=== PATIENT | female | born 1985 | race Caucasian/White ===

== ENCOUNTER 2019-07-02 15:45 | Inpatient (IN) | payer MEDICAID ==
[~2019-07-02] VITALS: Ht 162.6 cm; Wt 70.5 kg
[2019-07-02] MEDS ORDERED: SODIUM CHLORIDE 0.9% 1,000 ML IV ONE (15:59)
[2019-07-02] MEDS: ONDANSETRON HCL 4 MG/2 ML VIAL IV ONE ×2 (16:22→16:39)
[2019-07-02 16:33] LABS: Basophils # (auto) 0 10 ^3/uL (0-0.2); Basophils % (auto) 0.4 % (0.0-2.0); Eosinophils # (auto) 0.1 10 ^3/uL (0-0.8); Eosinophils % (auto) 0.9 % (0.0-7.0); Hematocrit 43.7 % (36.0-46.0); Hemoglobin 14.6 g/dL (12.2-16.2); Lymphocytes # (auto) 1.9 10 ^3/uL (0.4-5.4); Lymphocytes % (auto) 29.1 % (10.0-50.0); Mean Corpuscular Hemoglobin 29.2 pg (28.0-32.0); Mean Corpuscular Hgb Conc. 33.5 g/dL (32.0-36.0); Mean Corpuscular Volume 87.3 fL (80.0-100.0); Monocytes # (auto) 0.4 10 ^3/uL (0-1.3); Monocytes % (auto) 5.8 % (0.0-12.0); Neutrophils # (auto) 4.1 10 ^3/uL (1.6-8.6); Neutrophils % (auto) 63.8 % (37.0-80.0); Nucleated Red Blood Cells % 0.1 %; Platelet Count (auto) 206 10^3/uL (140-450); Red Blood Cells 5.01 10^6/uL (4.0-5.20); Red Cell Distribution Width 13.9 % (11.8-14.3); White Blood Cell 6.5 10^3/uL (4.4-10.8)
[2019-07-02 16:43] LABS: INR 1.04 (0.9-1.15); Partial Thromboplastin Time 27.1 sec (23.64-32.05)
[2019-07-02 16:51] LABS: Albumin 4.3 g/dL (3.4-5.0); Calcium 9.2 mg/dL (8.5-10.1); Potassium 3.3 mmol/L (3.5-5.1)
[2019-07-02 16:54] LABS: BUN/Creatinine Ratio 6.7; Bilirubin, Total 0.4 mg/dL (0.2-1.0); Total Protein 8.1 g/dL (6.4-8.2)
[2019-07-02] MEDS ORDERED: NITROGLYCERIN 0.4 MG SL TAB SL PRN ×2 (18:45→19:15)
[2019-07-02] MEDS ORDERED: POTASSIUM CHL 20MEQ/100ML 100 ML IV ONE (18:45)
[2019-07-02] MEDS ORDERED: MORPHINE SULF INJ 2 MG/ML SYRINGE 1ML IV PRN ×2 (18:45→19:15)
[2019-07-02] MEDS ORDERED: diphenhdrAMINE HCL 50 MG/1 ML VL IV ONE (19:00)
[2019-07-02] MEDS ORDERED: SODIUM CHLORIDE 0.9% 1,000 ML IV SCH (19:12)
[2019-07-02] MEDS ORDERED: ONDANSETRON HCL 4 MG/2 ML VIAL IV PRN (19:15)
[2019-07-02] MEDS ORDERED: hydrOXYchloroQUINE SULFATE 200 MG TAB PO ONE (19:15)
[2019-07-02] MEDS ORDERED: DEXTROSE (50%) 50ML SYRG IV PRN (19:15)
[2019-07-02] MEDS ORDERED: ALUM & MAG HYDROX-SIMETH LIQ(MAALOX) 30 ML PO PRN (19:15)
[2019-07-02] MEDS ORDERED: DOCUSATE SOD 100 MG CAP PO PRN (19:15)
[2019-07-02] MEDS ORDERED: HYDROcodone-ACET 5/325MG TAB PO PRN (19:15)
[2019-07-02] MEDS ORDERED: TEMAZEPAM 15 MG CAP PO PRN (19:15)
[2019-07-02] MEDS ORDERED: VITAMINS A & D (TOPICAL) OINT 5GM TOP ONE (19:30)
[2019-07-02] MEDS ORDERED: VITAMINS A & D (TOPICAL) OINT 5GM TOP PRN (19:30)
[2019-07-02 20:15] VITALS: BP 133/81
--- NOTE | 2019-07-02 20:18 | NUR ---
Telemetry admit from ER Patient admitted to Telemetry unit. Patient oriented to primary RN, unit, room, bed, and unit policies regarding patient care and visiting hours. Patient now on continuous telemetry monitoring, tele box # 60 and telemetry reading on arrival to unit is sinus rhythm. Patient weighed by bedscale and encouraged to call if they need something. All questions and concerns addressed, patient verbalized understanding. Safety precautions maintained bed is in lowest position and bed rails 2x. Call light and bedside table are within reach.
[2019-07-02 20:20] VITALS: BP 133/81
[2019-07-02] MEDS: InsuLIN REG 1unit/0.01ml Soln (100units/ml) SC SCH (22:00)
[2019-07-02] MEDS: ACCU-CHEK COMFORT CURVE STRIP VI SCH (22:00)
[2019-07-02] MEDS: hydrOXYchloroQUINE SULFATE 200 MG TAB PO SCH (22:00)
--- NOTE | 2019-07-02 22:00 | NUR ---
Patient refused med Patient refused scheduled Plaquenil PO 100mg. Patient states she wants to hold off and see if she has any side effects from the medication. Patient did agree to take one time Plaquenil 200mg dose at 2019 Addendum: 07/03/19 at 0619 by Luann Duff RN Educated patient on medication side effects/ adverse effects and uses. Will continue to monitor patient Q1 and PRN.
[2019-07-03] MEDS ORDERED: POTASSIUM CHL 20MEQ/100ML 100 ML IV ONE (02:30)
[2019-07-03 05:00] VITALS: BP 124/84
[2019-07-03 05:18] LABS: Basophils # (auto) 0 10 ^3/uL (0-0.2); Basophils % (auto) 0.6 % (0.0-2.0); Eosinophils # (auto) 0.1 10 ^3/uL (0-0.8); Eosinophils % (auto) 1.5 % (0.0-7.0); Hematocrit 37.3 % (36.0-46.0); Hemoglobin 12.8 g/dL (12.2-16.2); Lymphocytes % (auto) 29.9 % (10.0-50.0); Mean Corpuscular Hemoglobin 30.3 pg (28.0-32.0); Mean Corpuscular Hgb Conc. 34.4 g/dL (32.0-36.0); Monocytes # (auto) 0.4 10 ^3/uL (0-1.3); Monocytes % (auto) 6.2 % (0.0-12.0); Neutrophils % (auto) 61.8 % (37.0-80.0); Nucleated Red Blood Cells % 0.1 %; Platelet Count (auto) 182 10^3/uL (140-450); Red Blood Cells 4.24 10^6/uL (4.0-5.20); Red Cell Distribution Width 13.8 % (11.8-14.3); White Blood Cell 6.5 10^3/uL (4.4-10.8)
[2019-07-03 05:31] LABS: INR 1.12 (0.9-1.15); Partial Thromboplastin Time 28.6 sec (23.64-32.05)
[2019-07-03 05:32] LABS: Potassium 3.8 mmol/L (3.5-5.1)
[2019-07-03 05:44] LABS: Albumin 3.6 g/dL (3.4-5.0); BUN/Creatinine Ratio 6.6; Bilirubin, Total 0.4 mg/dL (0.2-1.0); Calcium 8.4 mg/dL (8.5-10.1); Phosphorus 3.5 mg/dL (2.5-4.90); Total Protein 6.8 g/dL (6.4-8.2)
[2019-07-03] MEDS: InsuLIN REG 1unit/0.01ml Soln (100units/ml) SC SCH ×3 (07:00→17:00)
[2019-07-03] MEDS: ACCU-CHEK COMFORT CURVE STRIP VI SCH ×3 (07:05→17:00)
[2019-07-03] MEDS ORDERED: ACETAMINOPHEN 325 MG TAB PO PRN (07:45)
[2019-07-03] MEDS: DEXTROSE 10% 1,000 ML IV SCH ×2 (07:45→18:12)
[2019-07-03 08:00] VITALS: BP 98/61
[2019-07-03] MEDS ORDERED: DICY20TA PO (08:09)
[2019-07-03] MEDS ORDERED: OMEP20TA PO (08:09)
[2019-07-03 09:03] VITALS: BP 98/61
[2019-07-03] MEDS ORDERED: ASCORBIC ACID 1,000 MG TAB PO SCH (10:00)
[2019-07-03] MEDS: hydrOXYchloroQUINE SULFATE 200 MG TAB PO SCH (10:00)
[2019-07-03] MEDS ORDERED: CHOLECALCIFEROL (VITD3) 1,000UNIT=25mCg TAB PO SCH (10:00)
[2019-07-03] MEDS ORDERED: FAMOTIDINE (10MG/ML) 2ML VL IV SCH (10:00)
[2019-07-03] MEDS ORDERED: ENOXAPARIN SOD 40 MG/0.4 ML SYRINGE SC SCH ×2 (10:00)
--- NOTE | 2019-07-03 11:57 | NUR ---
Spoke with Dr. Trevor Westfall regarding plan of care for patient, order received, will document and carry out
[2019-07-03] MEDS ORDERED: diazePAM 2 MG TAB PO PRN (12:00)
--- NOTE | 2019-07-03 12:03 | NUR ---
Called and left message for Dr. Anam Church. Dr. Shafer is inquiring Dr. Church will clear patient for discharge at this time.
--- NOTE | 2019-07-03 14:24 | NUR ---
Dr. Chaz Westfall at bedside with patient to discuss plan of care.
--- NOTE | 2019-07-03 15:02 | NUR ---
Patient out of room to abdomen/ pelvis CT
--- NOTE | 2019-07-03 16:37 | NUR ---
Paged Dr. Church to see if patient is cleared for discharge per Dr. Chaz Price.
--- NOTE | 2019-07-03 16:42 | NUR ---
Received call back from Dr. Church, he stated patient is cleared from him if Dr. Price thinks she is ok for discharge.
[2019-07-03 16:45] VITALS: BP 118/76
[2019-07-03] MEDS ORDERED: DOCU-94 PO (17:24)
[2019-07-03] MEDS ORDERED: HYDR200T36 PO (17:24)
[2019-07-03 18:12] VITALS: BP 105/65
--- NOTE | 2019-07-03 18:58 | NUR ---
Discharge instructions given as ordered. Encourage to follow up with Primary care provider Dr. Wilkerson as instructed. All questions and concerns addressed. Patient verbalized understanding. Medication reconciliation form completed and copy given to patient. IV removed with catheter intact, pressure dressing applied. Telemetry unit returned to ICU. Patient taken to vehicle via wheelchair with all personal belongings, accompanied by staff and her mother. No distress noted at time of departure.
[2019-07-06 14:17] LABS: Hepatitis A Ab IgM Negative; Hepatitis B Core IgM Negative; Hepatitis B Surface Antigen Negative (Negative); Hepatitis C Antibody Negative (Negative)
[2019-07-06 14:27] LABS: Hepatitis B Surface Antibody Negative
--- NOTE | 2019-07-06 16:17 | NUR ---
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 order sent to [employer] [facility]. Per Briana at [facility] they have accepted patient for service. Per Emily Jamil [facility] [employer] she is sending [facility] the auth. Addendum: 07/06/19 at 1619 by Joann FREEMAN Amended: Links added.
--- NOTE | 2019-07-06 16:36 | NUR ---
re-assessment Auth for Danelle Savage is [id number] Addendum: 07/06/19 at 1637 by Joann FREEMAN Amended: Links added.
[2019-07-06 17:43] LABS: Hepatitis B Surface Antigen Negative (Negative)
== END 2019-07-03 19:20 | disposition home health service (06) | DRG 423 ==
LOC: ER 15:45 → TELE 15:46 → TELE-WESTW 20:00
PROVIDERS: ADMIT Hospitalist; ATTEND Internal Medicine
DX: E80.1 Porphyria cutanea tarda (principal); E87.6 Hypokalemia; L29.9 Pruritus, unspecified; K21.9 Gastro-esophageal reflux disease without esophagitis; R21 Rash and other nonspecific skin eruption; F17.210 Nicotine dependence, cigarettes, uncomplicated; K58.9 Irritable bowel syndrome, unspecified; F41.9 Anxiety disorder, unspecified; Z80.0 Family history of malignant neoplasm of digestive organs; Z83.3 Family history of diabetes mellitus; Z80.3 Family history of malignant neoplasm of breast; K58.1 Irritable bowel syndrome with constipation
CPT/HCPCS: 36415; 71045; 74176; 80053; 80061; 80074; 81025; 82306; 82728; 82962; 83036; 83540; 83550; 83735; 84100; 84110; 84702; 85025; 85610; 85730; 86706; 87340; G0378; J2405; J3480; J3490

== ENCOUNTER 2023-08-19 17:56 | Emergency (ER) | payer MEDICAID ==
[~2023-08-19] VITALS: Ht 162.6 cm; Wt 80.4 kg
[~2023-08-19 17:56] MED LIST: DICY20TA PO; DOCU-94 PO; HYDR200T36 PO; OMEP20TA PO
[2023-08-19 19:46] LABS: Basophils # (auto) 0 10 ^3/uL (0-0.2); Basophils % (auto) 0.2 % (0.0-2.0); Eosinophils # (auto) 0 10 ^3/uL (0-0.8); Eosinophils % (auto) 0.3 % (0.0-7.0); Hematocrit 37.8 % (36.0-46.0); Hemoglobin 13.2 g/dL (12.2-16.2); Lymphocytes # (auto) 0.8 10 ^3/uL (0.4-5.4); Lymphocytes % (auto) 11.2 % (10.0-50.0); Mean Corpuscular Volume 82.7 fL (80.0-100.0); Monocytes # (auto) 0.2 10 ^3/uL (0-1.3); Monocytes % (auto) 3.6 % (0.0-12.0); Neutrophils # (auto) 5.9 10 ^3/uL (1.6-8.6); Neutrophils % (auto) 84.7 % (37.0-80.0); Nucleated Red Blood Cells % 0.2 %; Red Blood Cells 4.57 10^6/uL (4.0-5.20); Red Cell Distribution Width 14.2 % (11.8-14.3)
[2023-08-19 20:05] LABS: Urine Bacteria None Seen /hpf (None Seen); Urine WBC None Seen /hpf (0 - 5)
[2023-08-19 20:13] LABS: Alanine Aminotransferase 10 U/L (7-40); Albumin 4.6 g/dL (3.2-4.8); Alkaline Phosphatase 55 U/L (46-116); Anion Gap 7 (5-15); Aspartate Aminotransferase 10 U/L (13-40); BUN/Creatinine Ratio 5.4 (10.0-20.0); Bilirubin, Total 0.3 mg/dL (0.2-1.0); Blood Urea Nitrogen 5 mg/dL (9-23); Carbon Dioxide 24 mmol/L (20-30); Chloride 109 mmol/L (98-107); Glucose 92 mg/dL (74-106); Potassium 3.6 mmol/L (3.5-5.1); Sodium 140 mmol/L (136-145)
[2023-08-19 20:14] LABS: Total Protein 7.5 g/dL (5.7-8.2)
[2023-08-19] MEDS: metroNIDAZOLE 500 MG TAB PO ONE (20:19)
[2023-08-19 20:36] LABS: Urine Blood Negative /uL (Negative); Urine Clarity Clear (Clear); Urine Color Colorless (Yellow); Urine Protein, UAD Negative (Negative); Urine Specific Gravity 1.001 (1.001-1.035); Urine Urobilinogen Normal (Negative)
[2023-08-19] MEDS ORDERED: METR-344 PO (22:37)
[2023-08-19 23:06] VITALS: BP 127/80; PULSE 95; RESP 18; TEMP 98; O2SAT 98
== END 2023-08-19 23:07 | disposition home or self-care (01) ==
LOC: ER 17:56
DX: N39.0 Urinary tract infection, site not specified (principal); K52.9 Noninfective gastroenteritis and colitis, unspecified; F17.210 Nicotine dependence, cigarettes, uncomplicated; Z88.0 Allergy status to penicillin; Z88.2 Allergy status to sulfonamides
CPT/HCPCS: 36415; 80053; 81001; 85025

== ENCOUNTER 2023-11-09 22:03 | Emergency (ER) | payer MEDICAID ==
[~2023-11-09] VITALS: Ht 162.6 cm; Wt 76.5 kg
[~2023-11-09 22:03] MED LIST changes: +METR-344 PO
[2023-11-09] MEDS: DexAMETHasone SOD PHOS 10MG/1ML VIAL INJ IM ONE (23:11)
[2023-11-09 23:14] VITALS: TEMP 99.3
[2023-11-09 23:22] VITALS: PULSE 134; RESP 16; O2SAT 98
[2023-11-09] MEDS: diazePAM 2 MG TAB PO ONE (23:25)
[2023-11-10 00:06] VITALS: BP 128/84; PULSE 120; RESP 17; O2SAT 98
== END 2023-11-10 00:12 | disposition home or self-care (01) ==
LOC: ER 22:03
DX: J32.9 Chronic sinusitis, unspecified (principal); F17.210 Nicotine dependence, cigarettes, uncomplicated; Z88.0 Allergy status to penicillin; Z88.2 Allergy status to sulfonamides; Z88.8 Allergy status to other drugs, medicaments and biological substances; Z79.899 Other long term (current) drug therapy
CPT/HCPCS: 93005; 96372; 99283; J1100